=== PATIENT | female | born 1965 | race Two or more races ===

== ENCOUNTER 2019-05-09 13:07 | Emergency (ER) | payer MEDICAID, OTHER ==
[~2019-05-09] VITALS: Ht 147.3 cm; Wt 81.6 kg
[~2019-05-09 13:07] MED LIST: NOR10T
[2019-05-09 16:25] LABS: Basophils # (auto) 0.1 uL; Eosinophils # (auto) 0.1 uL; Lymphocytes # (auto) 1.9 uL; Monocytes # (auto) 0.6 uL
[2019-05-09 16:26] LABS: Basophils % (auto) 0.7 % (0.0-2.0); Eosinophils % (auto) 0.9 % (0.0-7.0); Hematocrit 52.3 % (36.0-46.0); Hemoglobin 17.6 g/dL (12.2-16.2); Lymphocytes % (auto) 21.5 % (10.0-50.0); Mean Corpuscular Hgb Conc. 33.7 g/dL (32.0-36.0); Mean Corpuscular Volume 92.1 fL (80.0-100.0); Monocytes % (auto) 6.5 % (0.0-12.0); Neutrophils # (auto) 6.4 uL; Neutrophils % (auto) 70.4 % (37.0-80.0); Platelet Count (auto) 231 10^3/uL (140-450); Red Blood Cells 5.68 10^6/uL (4.0-5.20)
[2019-05-09 16:35] LABS: Albumin 4.4 g/dL (3.4-5.0); Calcium 11.3 mg/dL (8.5-10.1); Magnesium 2.6 mg/dL (1.6-2.6); Potassium 4.2 mmol/L (3.5-5.1)
[2019-05-09 16:38] LABS: BUN/Creatinine Ratio 15.8; Bilirubin, Total 0.5 mg/dL (0.2-1.0)
[2019-05-09 17:33] VITALS: BP 189/91
== END 2019-05-09 17:34 | disposition home or self-care (01) ==
LOC: ER 13:07
DX: R10.31 Right lower quadrant pain (principal); R10.32 Left lower quadrant pain; M54.5 Low back pain; R11.0 Nausea; R42 Dizziness and giddiness; I10 Essential (primary) hypertension; F17.210 Nicotine dependence, cigarettes, uncomplicated; Z86.73 Personal history of transient ischemic attack (TIA), and cerebral infarction without residual deficits; Z90.710 Acquired absence of both cervix and uterus; Z79.899 Other long term (current) drug therapy
CPT/HCPCS: 36415; 74176; 80053; 83690; 83735; 85025

== ENCOUNTER 2024-06-16 06:09 | Emergency (ER) | payer MEDICAID ==
[~2024-06-16] VITALS: Ht 147.3 cm; Wt 74.4 kg
[2024-06-16 08:04] VITALS: BP 163/71; PULSE 90; RESP 16; TEMP 98.1; O2SAT 96
--- NOTE | 2024-06-16 08:11 | ED.PDOC ---
History of Present Illness HPI Comments 59 y/o F presents with right-rib pain for 1x day, today. Patient elaborates on pain being underneath her right armpits that occurs with movement and began since yesterday morning. She states on pain being burning in quality. She denies having any flank pain, abdominal pain, nausea, vomiting, fever, chills, or other associated symptoms or modifiers at this time. 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 History Family History Family History: Family hx of Cancer, Family hx of heart chaitanya Social History Smoker: Cigarettes, Less Than 1 Pack/Day Alcohol: Denies ETOH Use Drugs: Denies Drug Use Lives In: Home Musculoskeletal: reports: others (right rib pain ) All Other Systems: Reviewed and Negative (negative unless otherwise stated above or in HPI) Physical Exam General Appearance: Mild Distress HEENT: Normal ENT Inspection, Pharynx Normal, TMs Normal Neck: Full Range of Motion, Non-Tender, Normal, Normal Inspection Respiratory: Chest Non-Tender, Lungs Clear, No Accessory Muscle Use, No Respiratory Distress, Normal Breath Sounds Cardiovascular: No Edema, No JVD, No Murmur, No Gallop, Normal Peripheral Pulses, Regular Rate/Rhythm Breast Exam: Deferred Gastrointestinal: No Organomegaly, Non Tender, No Pulsatile Mass, Normal Bowel Sounds, Soft Genitalia: Deferred Pelvic: Deferred Rectal: Deferred Extremities: No calf tenderness, Normal capillary refill, Normal inspection, Normal range of motion, Non-tender, No pedal edema Musculoskeletal : Apperance: Normal Neurologic: Alert, chemical processing laborer II-XII nml as Tested, No Motor Deficits, Normal Affect, Normal Mood, No Sensory Deficits Cerebellar Function: Normal Reflexes: Normal Skin: Dry, Normal Color, Warm Peripheral Pulses: 3+ Radial (R), 3+ Radial (L) Lymphatic: No Adenopathy Was a procedure done? Was a procedure done?: No Differential Dx Considerations may include: musculoskeletal pain X-Ray, Labs, Meds, VS Vital Signs Date Time Temp Pulse Resp B/P (MAP) Pulse Ox O2 Delivery O2 Flow Rate FiO2 06/16/24 08:04 90 16 96 Room Air 06/16/24 08:04 98.1 90 16 163/71 (101) 96 98.1 06/16/24 06:18 16 96 Room Air* 0 21 06/16/24 06:18 98.1 90 16 163/71 (101) 96 Current Medications Medications (Trade) Dose Ordered Sig/Parisa Route Start Time Stop Time Status Last Admin Carisoprodol (Soma Tablet) 350 mg ONCE ONCE PO 06/16/24 08:15 06/16/24 08:16 DC 06/16/24 08:24 Patient alert. Came in because of right side musculoskeletal pain. Vitals stable. Answering all questions. Blood pressure slightly elevated. Possibly from pain. For her pain she was given Soma. States that she is feeling better after the medication. She does take Hague for her chronic pain syndrome. On examination no sign of any abnormality of the chest other than mild muscle inflammation. She is allergic to nonsteroidal. Reviewed her history pain Explained to the patient. Was told to follow up with her primary care physician. Was told to come back if there is any problem. Time of 1ST Reevaluation: 08:30 Reevaluation 1ST: Improved Patient Education/Counseling: Diagnosis, Treatment Family Education/Counseling: No Family Present Departure 1 Departure Time of Disposition: 08:37 Impression: Primary Impression: HTN (hypertension) Qualified Codes: I10 - Essential (primary) hypertension Additional Impression: Musculoskeletal pain Disposition: 01 HOME / SELF CARE / HOMELESS Condition: Good Discharged With: Self Critical Care Note Critical Care Time?: No Stability Stability form required: No Heart Score Heart Score: Heart Score Response (Comments) Value History N/A 0 EKG N/A 0 Age N/A 0 Risk Factors N/A 0 Troponin N/A 0 Total 0 I personally scribed for CARY LAGUNAS MD ([email or web address]) on 06/16/24 at 08:11. Electronically submitted by Evert Thacker ([email or web address]). CARY LAGUNAS MD Jun 16, 2024 08:11
[2024-06-16] MEDS: CARISOPRODOL 350 MG TAB PO ONE (08:24)
== END 2024-06-16 08:44 | disposition home or self-care (01) ==
LOC: ER 06:09
DX: I10 Essential (primary) hypertension (principal); M79.18 Myalgia, other site; R07.81 Pleurodynia; E66.9 Obesity, unspecified; D64.9 Anemia, unspecified; F17.210 Nicotine dependence, cigarettes, uncomplicated; Z86.73 Personal history of transient ischemic attack (TIA), and cerebral infarction without residual deficits; Z87.11 Personal history of peptic ulcer disease; Z90.710 Acquired absence of both cervix and uterus; Z98.890 Other specified postprocedural states